=== PATIENT | male | born 1965 | race African-American/Black ===

== ENCOUNTER 2022-12-13 09:25 | Outpatient (CLI) | payer OTHER | END 2022-12-13 09:26 | disposition home or self-care (01) | LOC: RAD 09:25 | PROVIDERS: ATTEND Internal Medicine Critical Care Medicine | DX: R06.00 Dyspnea, unspecified (principal); J44.9 Chronic obstructive pulmonary disease, unspecified | CPT/HCPCS: 71046 ==

== ENCOUNTER 2023-07-25 13:43 | Outpatient (CLI) | payer OTHER | END 2023-07-25 13:44 | disposition home or self-care (01) | LOC: CT 13:43 | PROVIDERS: ATTEND Family Medicine | DX: Z12.2 Encounter for screening for malignant neoplasm of respiratory organs (principal); F17.211 Nicotine dependence, cigarettes, in remission | CPT/HCPCS: 71271 ==

== ENCOUNTER 2023-12-24 12:47 | Outpatient (CLI) | payer OTHER | END 2023-12-24 12:48 | disposition home or self-care (01) | LOC: ULT 12:47 | PROVIDERS: ATTEND Physician Assistant Medical | DX: B18.1 Chronic viral hepatitis B without delta-agent (principal); R21 Rash and other nonspecific skin eruption; R14.2 Eructation; R16.0 Hepatomegaly, not elsewhere classified; R93.2 Abnormal findings on diagnostic imaging of liver and biliary tract | CPT/HCPCS: 76705 ==

== ENCOUNTER 2024-03-17 14:09 | Emergency (ER) | payer OTHER ==
[2024-03-17 15:33] LABS: #Basophils 0.08 10x3/uL (0.0-0.2); %Basophils 0.7 % (0.0-1.0); %Eosinophils 1.3 % (0.0-10.0); %Lymphocytes 27.9 % (21.0-51.0); %Monocytes 8.5 % (0.0-10.0); %Neutrophils 61.2 % (42.0-75.0); Hematocrit 42.6 % (42.0-52.0); Hemoglobin 15.2 g/dL (14.0-18.0); Mean Corpuscular HGB CONC 35.7 g/dL (32.0-36.0); Mean Corpuscular Hemoglobin 27.5 pg (27.0-31.0); Mean Corpuscular Volume 77.2 fL (78.0-98.0); Mean Platelet Volume 9.9 fL (7.4-10.4); Platelet Count 294 10x3/uL (130-400); RBC Distribution Width 13.4 % (11.5-14.5); Red Blood Cell (RBC) Count 5.52 mill/uL (4.70-6.10)
[2024-03-17 15:47] LABS: ALT (SGPT) 23 U/L (Less than 45); AST (SGOT) 32 U/L (11-34); Albumin 3.9 g/dL (3.1-4.5); Alkaline Phosphatase 54 U/L (40-110); Anion Gap 12 mmol/L (10-20); BUN (Urea Nitrogen) 13 mg/dL (8.4-25.7); Bilirubin, Total 0.3 mg/dL (0.3-1.2); Calc. Creatinine Clearance 0 mL/min (70-130); Calcium 9.2 mg/dL (7.8-10.44); Carbon Dioxide 28 mmol/L (22-29); Chloride 101 mmol/L (98-107); Estimated GFR 85; Globulin 5.2 g/dL (2.4-3.5); Glucose 88 mg/dL (70-105); Potassium 3.9 mmol/L (3.5-5.1); Protein, Total 9.1 g/dL (6.0-8.3); Sodium 137 mmol/L (136-145)
[2024-03-17 15:52] LABS: Troponin I Less than 0.010 ng/mL (< 0.028)
[2024-03-17] MEDS ORDERED: Ipratropium Bromide 2.5 ml Neb ONE (17:05)
[2024-03-17] MEDS ORDERED: Albuterol 2.5 MG (0.5 mL) NEB ONE (17:05)
[2024-03-17] MEDS ORDERED: Dexamethasone 10 MG/ML VIAL ONE (17:05)
[2024-03-17] MEDS ORDERED: Ketorolac Tromethamine 30 MG (1 mL) VIAL ONE (17:05)
== END 2024-03-17 17:21 | disposition home or self-care (01) ==
LOC: ERS 14:09
DX: R06.02 Shortness of breath (principal); G40.409 Other generalized epilepsy and epileptic syndromes, not intractable, without status epilepticus; J44.9 Chronic obstructive pulmonary disease, unspecified; J43.9 Emphysema, unspecified; Z79.899 Other long term (current) drug therapy
CPT/HCPCS: 36415; 71045; 71260; 74177; 80053; 83880; 84484; 85025; 93005; 94760; 96374; 96375; J1100; J1885; J7611; J7644

== ENCOUNTER 2024-12-19 07:45 | Outpatient (CLI) | payer MEDICAID | END 2024-12-19 07:46 | disposition home or self-care (01) | LOC: ULT 07:45 | PROVIDERS: ATTEND Internal Medicine | DX: K21.9 Gastro-esophageal reflux disease without esophagitis (principal); K59.00 Constipation, unspecified; K62.5 Hemorrhage of anus and rectum; R10.30 Lower abdominal pain, unspecified; B18.1 Chronic viral hepatitis B without delta-agent; K76.0 Fatty (change of) liver, not elsewhere classified; Z86.19 Personal history of other infectious and parasitic diseases | CPT/HCPCS: 76700 ==

== ENCOUNTER 2025-01-26 14:36 | Outpatient (CLI) | payer MEDICAID | END 2025-01-26 14:37 | disposition home or self-care (01) | LOC: RAD 14:36 | PROVIDERS: ATTEND Internal Medicine Critical Care Medicine | DX: R06.00 Dyspnea, unspecified (principal) | CPT/HCPCS: 71046 ==

== ENCOUNTER 2025-02-05 07:59 | Day surgery (SDC) | payer MEDICAID ==
[2025-02-04 12:50] VITALS: BMI 35.9
[2025-02-05] MEDS ORDERED: PROPOFOL 40 ML ONE (09:35)
[2025-02-05] MEDS ORDERED: PROPOFOL 20 ML ONE (10:11)
== END 2025-02-05 11:47 | disposition home or self-care (01) ==
LOC: SDC 07:59
PROVIDERS: ATTEND Internal Medicine
DX: K63.5 Polyp of colon (principal); K29.50 Unspecified chronic gastritis without bleeding; K64.8 Other hemorrhoids; K21.9 Gastro-esophageal reflux disease without esophagitis; J44.9 Chronic obstructive pulmonary disease, unspecified; Z87.891 Personal history of nicotine dependence; Z88.5 Allergy status to narcotic agent; Z79.51 Long term (current) use of inhaled steroids
CPT/HCPCS: 88305; 88342; J2704